=== PATIENT | female | born 1965 | race Caucasian/White ===

== ENCOUNTER 2018-02-18 09:23 | Emergency (ER) | payer BC ==
--- NOTE | 2018-02-18 11:41 | RAD ---
HISTORY: Pain and swelling in the left lower extremity TECHNIQUE: Multiple transverse and longitudinal ultrasound images were obtained of the veins of the left lower extremity using grayscale, color Doppler, and spectral Doppler imaging with and without compression and with augmentation. FINDINGS: VEINS: The common femoral vein, deep femoral vein, femoral vein and popliteal vein are compressible throughout their course, with normal flow on color Doppler imaging and normal response to augmentation on spectral Doppler imaging. SOFT TISSUES: Grossly normal. No large popliteal fossa cyst was identified. IMPRESSION: No sonographic evidence of deep vein thrombosis.
[2018-02-18 12:19] VITALS: BP 128/100
--- NOTE | 2018-02-18 12:26 | ED ---
Corin Mirza Emily, scribed for Dk Villegas MD on 02/18/18 at 1048 . Lower Extremity - HPI Summary HPI Summary: This patient is a 52 year old F referred to [facility] by [place]. Gorman (orthopedic) accompanied by for waxing and waning LLE pain that began in November,. Dr. Gorman recommended that pt receive an US to rule out DVT. The patient rates the pain 7/10 in severity. Symptoms aggravated by movement. Symptoms alleviated by OTC medications. Patient denies new RLE pain. - History of Current Complaint Chief Complaint: EDExtremityLower Stated Complaint: NEEDS DOPPLAR-LT LOWER EXTEMITY Time Seen by Provider: 02/18/18 10:09 Hx Obtained From: Patient Onset of Pain: Days Onset/Duration: Still Present Severity Initially: Moderate Severity Currently: Moderate Pain Intensity: 7 Pain Scale Used: 0-10 Numeric Timing: Intermittent Associated Signs And Symptoms: Positive: Knee Pain Aggravating Factor(s): Movement Alleviating Factor(s): OTC Meds Able to Bear Weight: Yes - Allergies/Home Medications Allergies/Adverse Reactions: Allergies Allergy/AdvReac Type Severity Reaction Status Date / Time No Known Allergies Allergy Verified 09/13/13 22:21 Home Medications: Home Medications Atorvastatin* [Lipitor*] 20 mg PO DAILY 02/18/18 [History Confirmed 02/18/18] Hydrochlorothiazide TAB* [Hydrodiuril TAB*] 50 mg PO DAILY 02/18/18 [History Confirmed 02/18/18] Sertraline* [Zoloft*] 150 mg PO DAILY 02/18/18 [History Confirmed 02/18/18] PMH/Surg Hx/FS Hx/Imm Hx Previously Healthy: No Endocrine/Hematology History: Denies: Hx Diabetes Cardiovascular History: Reports: Hx Hypertension Denies: Hx Congestive Heart Failure GI History: Comment Only: Other GI Disorders - sbo surgery History: Denies: Hx Renal Disease, Other Problems/Disorders - Surgical History Surgery Procedure, Year, and Place: hysterectomy/kike/3 hernia repairs/rodding in spine/appy/resection of intestines for sbo Infectious Disease History: No Infectious Disease History: Denies: Traveled Outside the [place] in Last 30 Days - Family History Known Family History: Positive: Cardiac Disease - Social History Occupation: Employed Full-time Lives: With Family Alcohol Use: Rare Substance Use Type: Reports: None Smoking Status (MU): Never Smoked Tobacco Review of Systems Negative: Fever Positive: Other - Positive LLE pain. Negative new RLE pain All Other Systems Reviewed And Are Negative: Yes Physical Exam - Summary Physical Exam Summary: Appearance: Well-appearing, Well-nourished Skin: Warm Eyes: Normal ENT: Normal Neck: Supple, nontender Respiratory: Clear to auscultation Cardiovascular: Regular rate, regular rhythm. Normal S1, S2. Abdomen: Soft, nontender Musculoskeletal: Strength/ROM Intact, Tender to palpation on left popliteal fossa to mid-calf. DP pulse 2+, NVI. Mild left peripatellar tenderness. Neurological: Normal, A&Ox3 Psychiatric: Normal General: No acute distress Triage Information Reviewed: Yes Vital Signs On Initial Exam: Initial Vitals Temp Pulse Resp BP Pulse Ox 97.0 F 73 16 157/93 97 02/18/18 09:30 02/18/18 09:30 02/18/18 09:30 02/18/18 09:30 02/18/18 09:30 Vital Signs Reviewed: Yes Diagnostics - Vital Signs Vital Signs Temp Pulse Resp BP Pulse Ox 02/18/18 09:30 97.0 F 73 16 157/93 97 - Laboratory Lab Statement: Any lab studies that have been ordered have been reviewed, and results considered in the medical decision making process. - Additional Comments Diagnostic Additional Comments: A lower extremity US reveals, per radiologist, no sonographic evidence of deep vein thrombosis. ED physician has reviewed this radiology report. Re-Evaluation - Re-Evaluation First Eval Re-Evaluation Time: 12:04 Change: Unchanged Comment: Discussed results and plan of care with patient Lower Extremity Course/Dx - Course Course Of Treatment: US of left calf- NO DVT and NO large popliteal cyst identified. recommended follow up with ortho and hydration - Diagnoses Provider Diagnoses: Pain of left calf Discharge - Sign-Out/Discharge Documenting (check all that apply): Discharge - Discharge Plan Condition: Stable Disposition: HOME Patient Education Materials: Muscle Cramp (ED) Referrals: Mile Arroyo RN [Primary Care Provider] - Additional Instructions: follow up with orthopedics The documentation as recorded by the Corin mckeon Emily accurately reflects the service I personally performed and the decisions made by , Dk Villegas MD.
== END 2018-02-18 12:14 | disposition home or self-care (01) ==
LOC: ED 09:23
DX: M79.662 Pain in left lower leg (principal); I10 Essential (primary) hypertension
CPT/HCPCS: 99282